=== PATIENT | female | born 1950 | race Caucasian/White ===

== ENCOUNTER 2016-08-10 05:02 | Inpatient (IN) | payer OTHER ==
[~2016-08-10] VITALS: Ht 154.9 cm; Wt 53.0 kg
[2016-08-10] VITALS (8 sets, daily range): BP systolic 119–134; BP diastolic 64–86; PULSE 83–108; RESP 16–21; TEMP 97.7–98.4; O2SAT 88–100
[~2016-08-10 05:02] MED LIST: AMLO5TAB2 PO; CYCL1TAB29 PO; DICL75TA PO; GABA300C5 PO; LISI-515 PO; OMEP40CA2 PO
[2016-08-10] MEDS ORDERED: SODIUM CHLOR 0.9% 1000 ML INJ 1,000 ML IV SCH (05:17)
--- NOTE | 2016-08-10 05:25 | PD ---
HPI . Abdominal pain Chief Complaint: Abdominal Pain Time Seen by Provider: 05:17 Travel History International Travel<30 days: No Contact w/Intl Traveler<30days: No Traveled to known affect area: No History of Present Illness HPI Patient presents with a three-day history of upper abdominal pain. She has also had some emesis. She estimates about 10 total episodes of emesis since onset 3 days ago. She denies diarrhea. She denies urinary tract symptoms. She denies fever. She denies any unusual cough or shortness of breath. She states that she always has a cough but it is nothing unusual. PFSH Past Medical History Arthritis: No Asthma: No Autoimmune Disease: No Anxiety: No Depression: No Heart Rhythm Problems: No Cancer: Yes (CERVICAL AND LUNG) High Cholesterol: No Chemotherapy: Yes Chest Pain: No Congestive Heart Failure: No COPD: No Cerebrovascular Accident: No Diabetes: No Diminished Hearing: No Endocrine: No GERD: Yes Genitourinary: No Hiatal Hernia: No Hypertension: Yes Immune Disorder: No Kidney Stones: No Medical other: Yes (neuropathy) Musculoskeletal: No Neurologic: No Psychiatric: No Reproductive: No Respiratory: Yes (lung cancer) Immunizations Current: Yes Migraines: No Radiation Therapy: Yes Renal Failure: No Seizures: No Sickle Cell Disease: No Sleep Apnea: No Thyroid Disease: No Ulcer: No Influenza Vaccination: No Menopausal: Yes : 2 Para: 2 Past Surgical History Abdominal Surgery: No AICD: No Arteriovenous Shunt: No Cardiac Surgery: No Cholecystectomy: Yes Ear Surgery: No Endocrine Surgery: No Eye Surgery: No Genitourinary Surgery: No Gynecologic Surgery: Yes (HYSTERECTOMY) Hysterectomy: Yes Insulin Pump: No Joint Replacement: No Oral Surgery: No Pacemaker: No Thoracic Surgery: No Other Surgery: Yes Social History Alcohol Use: Yes (occassional) Tobacco Use: No Substance Use: No Allergies-Medications (Allergen,Severity, Reaction): Coded Allergies: No Known Allergies (Verified , 08/10/16) Reported Meds & Prescriptions Reported Meds & Active Scripts Active Diclofenac Sodium DR (Diclofenac Sodium) 75 Mg Tabdr 75 Mg PO BID Gabapentin 300 Mg Cap 300 Mg PO TID Lisinopril 20 Mg Tab 20 Mg PO DAILY Omeprazole 40 Mg Cap 40 Mg PO DAILY Amlodipine (Amlodipine Besylate) 5 Mg Tab 5 Mg PO DAILY Review of Systems Except as stated in HPI: all other systems reviewed are Neg General / Constitutional: No: Fever, Chills Respiratory: Positive: Cough, No: Shortness of Breath Gastrointestinal: Positive: Nausea, Vomiting, Abdominal Pain, No: Diarrhea Genitourinary: No: Urgency, Frequency, Dysuria, Decreased Urinary Output Physical Exam Narrative GENERAL: Healthy-appearing woman in no acute distress SKIN: Warm and dry. HEAD: Atraumatic. Normocephalic. EYES: Pupils equal and round. Sclera are anicteric ENT: No nasal bleeding or discharge. Mucous membranes pink and moist. NECK: Trachea midline. Neck is supple CARDIOVASCULAR: Regular rate and rhythm. Heart sounds are normal RESPIRATORY: No accessory muscle use. Lungs are clear with full air movement throughout GASTROINTESTINAL: Abdomen soft. Diffuse upper abdominal tenderness. No point tenderness. Nondistended. MUSCULOSKELETAL: No obvious deformities. No edema. NEUROLOGICAL: Awake and alert. No obvious cranial nerve deficits. Motor grossly within normal limits. Normal speech. PSYCHIATRIC: Appropriate mood and affect; insight and judgment normal. Data Data Last Documented VS Vital Signs Date Time Temp Pulse Resp B/P Pulse Ox O2 Delivery O2 Flow Rate FiO2 08/10/16 05:13 102 124/86 98 08/10/16 05:05 97.7 16 Orders Complete Blood Count With Diff (08/10/16 05:17) Comprehensive Metabolic Panel (08/10/16 05:17) Lipase (08/10/16 05:17) Lactic Acid (08/10/16 05:17) Urinalysis - C+S If Indicated (08/10/16 05:17) Ct Abd/Pel W Iv Contrast(Rout) (08/10/16 05:17) Iv Access Insert/Monitor (08/10/16 05:17) Ecg Monitoring (08/10/16 05:17) Oximetry (08/10/16 05:17) Morphine Inj (Morphine Inj) (08/10/16 05:30) Ondansetron Inj (Zofran Inj) (08/10/16 05:30) Sodium Chlor 0.9% 1000 Ml Inj (Ns 1000 M (08/10/16 05:17) Sodium Chloride 0.9% Flush (Ns Flush) (08/10/16 05:30) Electrocardiogram (08/10/16 05:17) Iohexol 350 Inj (Omnipaque 350 Inj) (08/10/16 06:36) Place Ng Tube To Low Intermit (08/10/16 06:58) Morphine Inj (Morphine Inj) (08/10/16 07:00) Labs Laboratory Tests Test 08/10/16 05:20 White Blood Count 7.9 TH/MM3 Red Blood Count 4.40 MIL/MM3 Hemoglobin 13.4 GM/DL Hematocrit 39.6 % Mean Corpuscular Volume 90.1 FL Mean Corpuscular Hemoglobin 30.4 PG Mean Corpuscular Hemoglobin 33.8 % Concent Red Cell Distribution Width 13.9 % Platelet Count 227 TH/MM3 Mean Platelet Volume 8.2 FL Neutrophils (%) (Auto) 73.8 % Lymphocytes (%) (Auto) 17.4 % Monocytes (%) (Auto) 6.4 % Eosinophils (%) (Auto) 1.3 % Basophils (%) (Auto) 1.1 % Neutrophils # (Auto) 5.9 TH/MM3 Lymphocytes # (Auto) 1.4 TH/MM3 Monocytes # (Auto) 0.5 TH/MM3 Eosinophils # (Auto) 0.1 TH/MM3 Basophils # (Auto) 0.1 TH/MM3 CBC Comment DIFF FINAL Differential Comment Sodium Level 136 MEQ/L Potassium Level 3.5 MEQ/L Chloride Level 101 MEQ/L Carbon Dioxide Level 24.5 MEQ/L Anion Gap 11 MEQ/L Blood Urea Nitrogen 13 MG/DL Creatinine 0.72 MG/DL Estimat Glomerular Filtration 82 ML/MIN Rate Random Glucose 124 MG/DL Lactic Acid Level 0.8 mmol/L Calcium Level 8.9 MG/DL Total Bilirubin 0.5 MG/DL Aspartate Amino Transf 18 U/L (AST/SGOT) Alanine Aminotransferase 22 U/L (ALT/SGPT) Alkaline Phosphatase 96 U/L Total Protein 7.8 GM/DL Albumin 3.7 GM/DL Lipase 124 U/L [facility] Medical Decision Making Medical Screen Exam Complete: Yes Emergency Medical Condition: Yes Medical Record Reviewed: Yes (the patient had acute cholecystitis which was treated with an open cholecystectomy in hepaticojejunostomy. This was subsequently complicated by a small bowel obstruction.) Interpretation(s) EKG shows a normal sinus rhythm with a rate of 85. No ST segment elevation or depression. No change from previous. Differential Diagnosis Differential diagnosis of abdominal pain includes but is not limited to gastritis, pancreatitis, hepatitis, gastroenteritis, gallbladder disease, constipation, urinary retention, UTI, peptic ulcer disease, diverticulitis or appendicitis Narrative Course This is a patient who has a history of previous small bowel obstruction who presents with upper abdominal pain with associated nausea and vomiting. She will be evaluated for possible small bowel obstruction. CBC is normal. Chemistries are normal. Lactic acid level is normal. CT is suggestive of a small bowel obstruction. I will consult the hospitalist for admission. Diagnosis Primary Impression: Abdominal pain Qualified Code: R10.11 - Right upper quadrant abdominal pain Additional Impression: Small bowel obstruction Admitting Information Admitting Physician Requests: Admit Condition: Stable Paris Fletcher MD Aug 10, 2016 05:25
[2016-08-10] MEDS ORDERED: ONDANSETRON HCL 4 MG/2 ML VIAL IVP ONE (05:30)
[2016-08-10] MEDS ORDERED: MORPHINE SULFATE 4 MG/ML INJ IV PUSH ONE ×2 (05:30→07:00)
[2016-08-10] MEDS ORDERED: SODIUM CHLORIDE 0.9% FLUSH 5 ML FLUSH IVF PRN ×2 (05:30→21:45)
[2016-08-10 05:39] LABS: AUTOMATED NEUTROPHIL # 5.9 TH/MM3 (1.8-7.7); BASOPHIL # 0.1 TH/MM3 (0-0.2); BASOPHIL % 1.1 % (0.0-2.0); EOSINOPHIL # 0.1 TH/MM3 (0-0.4); EOSINOPHIL % 1.3 % (0.0-4.0); HEMATOCRIT 39.6 % (35.0-46.0); HEMO FLAGS DIFF FINAL; LYMPH % 17.4 % (9.0-44.0); LYMPHOCYTE # 1.4 TH/MM3 (1.0-4.8); MEAN CELL VOLUME 90.1 FL (80.0-100.0); MEAN CORPUSCULAR HEMOGLOBIN 30.4 PG (27.0-34.0); MEAN CORPUSCULAR HGB CONC 33.8 % (32.0-36.0); MONO % 6.4 % (0.0-8.0); NEUT % 73.8 % (16.0-70.0); PLATELET COUNT 227 TH/MM3 (150-450); RED CELL DISTRIBUTION WIDTH 13.9 % (11.6-17.2); WHITE BLOOD COUNT 7.9 TH/MM3 (4.0-11.0)
[2016-08-10 06:08] LABS: ALKALINE PHOSPHATASE 96 U/L (45-117); ALT (GPT) 22 U/L (10-53); ANION GAP 11 MEQ/L (5-15); AST (GOT) 18 U/L (15-37); BICARBONATE 24.5 MEQ/L (21.0-32.0); BLOOD UREA NITROGEN 13 MG/DL (7-18); CHLORIDE 101 MEQ/L (98-107); GLOMERULAR FILTRATION RATE 82 ML/MIN (>89); POTASSIUM 3.5 MEQ/L (3.5-5.1); SODIUM (NA) 136 MEQ/L (136-145); TOTAL BILIRUBIN ADULT 0.5 MG/DL (0.2-1.0)
[2016-08-10] MEDS ORDERED: IOHEXOL 350 MG/ML 10 ML VIAL (for RAD DIAG) IV ONE (06:36)
--- NOTE | 2016-08-10 06:52 | RADRPT ---
EXAM DATE/TIME: 08/10/2016 06:33 [facility] COMPARISON: CT ABDOMEN & PELVIS W/O CONTRAST, November 24, 2015, 3:35. INDICATIONS : Abdominal pain, nausea and vomiting since monday. IV CONTRAST: 66 cc Omnipaque 350 (iohexol) IV ORAL CONTRAST: No oral contrast ingested. RADIATION DOSE: 5.22 CTDIvol (mGy) MEDICAL HISTORY : Carcinoma, lung. cervical cancer SURGICAL HISTORY : Cholecystectomy. Hysterectomy. ENCOUNTER: Initial ACUITY: 2 days PAIN SCALE: 8/10 LOCATION: abdomen TECHNIQUE: Volumetric scanning of the abdomen and pelvis was performed. Using automated exposure control and adjustment of the mA and/or kV according to patient size, radiation dose was kept as low as reasonably achievable to obtain optimal diagnostic quality images. FINDINGS: LOWER LUNGS: There is mild left base atelectasis. LIVER: Pneumobilia is present. No evidence of mass or biliary ductal dilatation. Gallbladder surg ically absent. SPLEEN: Normal size without lesion. PANCREAS: Within normal limits. KIDNEYS: Normal in size and shape. There is no mass, stone or hydronephrosis. ADRENAL GLANDS: Within normal limits. VASCULAR: Dense atherosclerotic calcifications. No evidence of aneurysm. No major vessel occlusio n. BOWEL/MESENTERY: There is mild dilation of loops of bowel in the mid abdomen. There is mild indur ation of the adjacent mesentery. One of these is notable for what appears to be a staple anastomosis. Bowel loops elsewhere are normal in caliber during the colon is normal in caliber with diffuse diver ticulosis. There is no evidence of extraluminal gas or fluid. ABDOMINAL WALL: Within normal limits. RETROPERITONEUM: There is no lymphadenopathy. BLADDER: No wall thickening or mass. REPRODUCTIVE: Uterus is surgically absent. No evidence of pelvic mass. INGUINAL: There is no lymphadenopathy or hernia. MUSCULOSKELETAL: Within normal limits for patient age. CONCLUSION: Dilated loops of small bowel in the mid abdomen. Though it least somewhat concerning for early closed-loop obstruction, the appearance is similar to previous Vaibhav Blood MD on August 10, 2016 at 6:43 Board Certified Radiologist. This report was verified electronically.
[2016-08-10] MEDS: SODIUM CHLOR 0.9% 1000 ML INJ 1,000 ML IV SCH ×3 (08:55→23:48)
[2016-08-10 11:43] LABS: BACTERIA, URINE MANY /hpf; BLOOD, URINE MOD (NEG); GLUCOSE,URINE NEG (NEG); KETONE, URINE NEG (NEG); NITRITE,URINE NEG (NEG); PH, URINE 6.5 (5.0-8.5); SQUAMOUS EPITHELIAL CELL URINE 2 /hpf (0-5); URINE COLOR YELLOW (YELLW/STRAW)
[2016-08-10 11:49] LABS: COMMENT (UR) CULTURE INDICATED; CULTURE IF INDICATED CULTURE INDICATED
[2016-08-10] MEDS ORDERED: PROPOFOL 200 MG/20 ML AMP IV ONE (12:00)
[2016-08-10] MEDS ORDERED: ONDANSETRON HCL 4 MG/2 ML VIAL IV PUSH ONE (12:00)
[2016-08-10] MEDS ORDERED: PHENYLEPH/NS 1000 MCG/10 ML SYR IV ONE (12:00)
[2016-08-10] MEDS ORDERED: NEOSTIGMINE 3 MG/3 ML SYR IV ONE (12:00)
[2016-08-10] MEDS: HYDROmorphone HCL PF 1 MG/ML VIAL IV PUSH PRN ×2 (12:29→16:42)
--- NOTE | 2016-08-10 16:51 | HHI.HP ---
HPI Service [facility] Hospitalists Primary Care Physician Magui Cartwright MD Admission Diagnosis SBO Chief Complaint: Nausea/vomiting Travel History International Travel<30 Days: No Contact w/Intl Traveler <30 Da: No Traveled to Known Affected Are: No History of Present Illness Mrs. De Santiago is a pleasant 66 y/o female with hx of SBO after abdominal surgery for acute cholecystitis in 11/2015, stage IIIb Small cell lung cancer in remission, treated with chemo and radiation in 2005 and HTN. Pt presented to the ED on 08/10/16 with complaints of a 3 day history of abd pain, nausea and vomiting. She states that her last BM was yesterday evening and was normal. Every time she tried to eat and drink she was having increased upper abd pain, nausea and vomiting. She denies urinary symptoms, fevers/chills, melena, BRBPR, SOB or increased cough. She reports a chronic cough since her lung cancer but there is no recent change in this cough. Pt is quite anxious at the time of the exam. She had a CT abd/pelvis at admission which revealed dilated loops of small bowel in the mid abdomen, somewhat concerning for early closed-loop obstruction, the appearance is similar to previous. Pt had an NGT placed in the ER but not much outpt per nursing staff. Pt has been evaluated by General Surgery and is planned to go to the OR tonight. Review of Systems Constitutional: DENIES: Fever, Chills Eyes: DENIES: Vision loss Ears, nose, mouth, throat: DENIES: Hearing loss Respiratory: COMPLAINS OF: Cough (chronic), DENIES: Shortness of breath Cardiovascular: DENIES: Chest pain, Palpitations Gastrointestinal: COMPLAINS OF: Abdominal pain, Nausea, Vomiting, DENIES: Constipation, Diarrhea Genitourinary: DENIES: Urinary incontinence, Urgency Musculoskeletal: DENIES: Back pain Integumentary: DENIES: Rash Neurologic: DENIES: Headache Psychiatric: COMPLAINS OF: Anxiety, DENIES: Confusion Past Family Social History Past Medical History Hx of SBO after abdominal surgery for acute cholecystitis in 11/2015 Stage IIIb Small cell lung cancer in remission, treated with chemo and radiation , 2005; Oncologist [place] (Dr. Connell at [facility]) HTN Chronic neck pain Hx of cervical cancer Past Surgical History Laparoscopic cholecystectomy converted to open cholecystectomy with CBD resection and hepaticojejunostomy in 11/2015 Hysterectomy for cervical cancer (1980) Cervical lymph node exploration Reported Medications Gabapentin 300 Mg PO TID Lisinopril 20 Mg PO DAILY Omeprazole 40 Mg PO DAILY Amlodipine 5 Mg PO DAILY Allergies: Coded Allergies: No Known Allergies (Verified , 08/10/16) Family History Mother: alive in 80s, with hx of CAD Father: at 71, CHF, CVA Sister: alive, CAD Brother: alive, COPD Social History Lives alone Works at a bar Tobacco: quit smoking 2006, 2 PPD x 40 years EtOH: social Illicit drugs: denies Physical Exam Vital Signs Vital Signs Date Time Temp Pulse Resp B/P Pulse Ox O2 Delivery O2 Flow Rate FiO2 08/10/16 12:00 98.2 87 19 121/72 97 08/10/16 11:16 96 Nasal Cannula 08/10/16 07:31 88 Room Air 08/10/16 07:31 95 Nasal Cannula 2 08/10/16 07:17 83 21 124/86 98 Room Air 08/10/16 05:13 102 124/86 98 08/10/16 05:05 97.7 108 16 119/64 100 Physical Exam GENERAL: This is a well-nourished, well-developed patient, in no apparent distress. HEENT: Atraumatic. Normocephalic. No temporal or scalp tenderness. No scleral icterus. Airway patent. NECK: Trachea midline, supple, nontender. CARDIO: Regular. RESP: CTA bilaterally. No wheezes, rales, or rhonchi. ABD: Decreased bowel sounds, mildly distended, upper abd tenderness. EXT: Extremities without clubbing, cyanosis, or edema. NEURO: Awake and alert. Motor and sensory grossly within normal limits. Normal speech. Laboratory Laboratory Tests Test 08/10/16 08/10/16 05:20 11:15 White Blood Count 7.9 Red Blood Count 4.40 Hemoglobin 13.4 Hematocrit 39.6 Mean Corpuscular Volume 90.1 Mean Corpuscular Hemoglobin 30.4 Mean Corpuscular Hemoglobin 33.8 Concent Red Cell Distribution Width 13.9 Platelet Count 227 Mean Platelet Volume 8.2 Neutrophils (%) (Auto) 73.8 Lymphocytes (%) (Auto) 17.4 Monocytes (%) (Auto) 6.4 Eosinophils (%) (Auto) 1.3 Basophils (%) (Auto) 1.1 Neutrophils # (Auto) 5.9 Lymphocytes # (Auto) 1.4 Monocytes # (Auto) 0.5 Eosinophils # (Auto) 0.1 Basophils # (Auto) 0.1 CBC Comment DIFF FINAL Differential Comment Sodium Level 136 Potassium Level 3.5 Chloride Level 101 Carbon Dioxide Level 24.5 Anion Gap 11 Blood Urea Nitrogen 13 Creatinine 0.72 Estimat Glomerular Filtration 82 Rate Random Glucose 124 Lactic Acid Level 0.8 Calcium Level 8.9 Total Bilirubin 0.5 Aspartate Amino Transf 18 (AST/SGOT) Alanine Aminotransferase 22 (ALT/SGPT) Alkaline Phosphatase 96 Total Protein 7.8 Albumin 3.7 Lipase 124 Urine Color YELLOW Urine Turbidity HAZY Urine pH 6.5 Urine Specific [place] 1.050 Urine Protein TRACE Urine Glucose (UA) NEG Urine Ketones NEG Urine Occult Blood MOD Urine Nitrite NEG Urine Bilirubin NEG Urine Urobilinogen LESS THAN 2.0 Urine Leukocyte Esterase NEG Urine RBC 1 Urine WBC 2 Urine Squamous Epithelial 2 Cells Urine Bacteria MANY Microscopic Urinalysis Comment CULTURE INDICATED Date/Time Procedure Status Source Growth 08/10/16 11:15 Urine Culture Received Urine Clean Catch Pending Result Diagram: 08/10/16 0520 08/10/16 0520 Imaging Last Impressions Abdomen/Pelvis CT 08/10/1617 Signed Impressions: Service Date/Time: Wednesday, August 10, 2016 06:33 - CONCLUSION: Dilated loops of small bowel in the mid abdomen. Though it least somewhat concerning for early closed-loop obstruction, the appearance is similar to previous Vaibhav Blood MD Septic Shock Reassessment Heart: Regular rate and rhythm Lungs: Clear Skin: Warm Peripheral Pulses: Bounding Right Radial Bounding Left Radial Bounding Right Popliteal Bounding Left Popliteal Bounding Right Dorsalis Pedis Bounding Left Dorsalis Pedis Bounding Right Posterior Tibial Bounding Left Posterior Tibial Assessment and Plan Problem List: (1) Small bowel obstruction Status: Acute Plan: - Pt admitted with a three day history of abdominal pain, nausea/vomiting - Pt with a hx of SBO after previous laparoscopic cholecystectomy converted to open cholecystectomy with CBD resection and hepaticojejunostomy in 11/2015 - CT Abd/pelvis (08/10) --> Dilated loops of small bowel in the mid abdomen. Though it least somewhat concerning for early closed-loop obstruction, the appearance is similar to previous - NGT has been placed to LIWS - General Surgery is consulted and pt is planned to go to the OR this evening. - PRN BP medications - Zofran PRN - Tylenol PRN - Ativan PRN anxiety - DVT prophylaxis. (2) Abdominal pain Status: Acute Plan: - See above. (3) HTN (hypertension) Status: Chronic Plan: - BP stable currently - Hold home meds as pt is NPO - Vasotec PRN - Monitor (4) History of lung cancer Status: Chronic Plan: - Pt with hx of stage IIIb small cell lung cancer in remission, treated with chemo and radiation, 2005 - Pts Oncologist in [place] (Dr. Connell at [facility]) (5) History of cervical cancer Status: Chronic Physician Certification 2 Midnight Certification Type: Admission for Inpatient Services Order for Inpatient Services The services are ordered in accordance with Medicare regulations or non- Medicare payer requirements, as applicable. In the case of services not specified as inpatient-only, they are appropriately provided as inpatient services in accordance with the 2-midnight benchmark. Estimated LOS (days): 3 3 days is the estimated time the patient will need to remain in the hospital, assuming treatment plan goals are met and no additional complications. Post-Hospital Plan: Not yet determined Problem Qualifiers (1) Abdominal pain: Qualified Code: R10.11 - Right upper quadrant abdominal pain Kayli Lunsford Aug 10, 2016 16:51 Lokesh Michel DO Aug 19, 2016 18:17
[2016-08-10] MEDS ORDERED: NS + KCL 20 MEQ INJ 1,000 ML IV SCH (17:00)
[2016-08-10] MEDS ORDERED: ENALAPRILAT 1.25 MG/ML VIAL IV PUSH PRN (17:15)
[2016-08-10] MEDS ORDERED: ONDANSETRON HCL 4 MG/2 ML VIAL IV PRN ×2 (17:15→21:45)
[2016-08-10] MEDS ORDERED: ACETAMINOPHEN 325 MG TAB PO PRN (17:15)
[2016-08-10] MEDS: ceFAZolin 2 GM PREMIX 50 ML IV SCH ×2 (17:46→20:20)
[2016-08-10] MEDS: METRONIDAZOLE 500 MG/100 ML ISONTONIC SOLN IV SCH ×2 (17:46→20:22)
[2016-08-10] MEDS: LORazepam 2 MG/ML VIAL IV PUSH PRN (17:47)
[2016-08-10] MEDS ORDERED: BUPIVACAINE/EPINEPHRINE 0.25% PF 30 ML VIAL ONE (19:29)
[2016-08-10] MEDS ORDERED: RESP: ALBUTEROL CONC 2.5 MG/0.5 ML NEB ONE (19:40)
--- NOTE | 2016-08-10 19:46 | EKG ---
Date Performed: 08/10/2016 Time Performed: 05:29:10 PTAGE: 66 years EKG: Sinus rhythm NORMAL ECG PREVIOUS TRACING : 11/17/2015 10.57 Compared to prior tracing no significant change DOCTOR: Andrea Benitez Interpretating Date/Time 08/10/2016 19:45:20
[2016-08-10] MEDS ORDERED: fentaNYL CITRATE 250 MCG/5 ML AMP ONE (21:11)
[2016-08-10] MEDS ORDERED: Post-op Orders (for Pharmacy) MISC XX ONE (21:45)
[2016-08-10] MEDS ORDERED: ACETAMINOPHEN/HYDROcodone 325 MG/5 MG TAB PO PRN (21:45)
[2016-08-10] MEDS ORDERED: MORPHINE SULFATE 8 MG/ML INJ IV PUSH PRN (21:45)
[2016-08-10] MEDS ORDERED: MORPHINE SULFATE 4 MG/ML INJ ONE (22:43)
[2016-08-11] MEDS: LORazepam 2 MG/ML VIAL IV PUSH PRN ×3 (00:11→22:08)
[2016-08-11 00:42] VITALS: BP 105/59; PULSE 81; RESP 16; TEMP 98.7; O2SAT 94
[2016-08-11] MEDS: metroNIDAZOLE 500 MG INJ 100 ML IV SCH ×3 (02:57→17:20)
[2016-08-11 05:04] LABS: AUTOMATED NEUTROPHIL # 5.6 TH/MM3 (1.8-7.7); BASOPHIL % 0.2 % (0.0-2.0); EOSINOPHIL % 0.2 % (0.0-4.0); HEMATOCRIT 35.5 % (35.0-46.0); HEMO FLAGS DIFF FINAL; LYMPH % 8.8 % (9.0-44.0); LYMPHOCYTE # 0.6 TH/MM3 (1.0-4.8); MEAN CELL VOLUME 91.4 FL (80.0-100.0); MEAN CORPUSCULAR HEMOGLOBIN 30.7 PG (27.0-34.0); MEAN CORPUSCULAR HGB CONC 33.6 % (32.0-36.0); MONO % 5.7 % (0.0-8.0); NEUT % 85.1 % (16.0-70.0); PLATELET COUNT 146 TH/MM3 (150-450); RED BLOOD COUNT 3.88 MIL/MM3 (4.00-5.30); RED CELL DISTRIBUTION WIDTH 13.7 % (11.6-17.2); WHITE BLOOD COUNT 6.6 TH/MM3 (4.0-11.0)
[2016-08-11 05:13] LABS: BICARBONATE 26.3 MEQ/L (21.0-32.0); MAGNESIUM 1.4 MG/DL (1.5-2.5); POTASSIUM 3.4 MEQ/L (3.5-5.1)
[2016-08-11] MEDS: SODIUM CHLOR 0.9% 1000 ML INJ 1,000 ML IV SCH ×2 (05:46→17:20)
[2016-08-11] MEDS ORDERED: MAGNESIUM SULFATE 4 GM PREMIX 100 ML IV ONE (07:45)
[2016-08-11 07:59] VITALS: BP 135/68; PULSE 84; RESP 17; TEMP 98.3; O2SAT 95
[2016-08-11] MEDS ORDERED: MAGNESIUM SULFATE 4 GM/NS 100 ML IV ONE ×2 (08:00)
[2016-08-11] MEDS ORDERED: POTASSIUM CHLOR 20 MEQ PREMIX 100 ML IV ONE (08:00)
[2016-08-11] MEDS: MAGNESIUM SULFAT 1 GM PREMIX 100 ML x2 bags IV SCH ×4 (08:34→11:58)
[2016-08-11] MEDS: SODIUM CHLORIDE 0.9% FLUSH 5 ML FLUSH IVF SCH ×2 (08:35→19:55)
--- NOTE | 2016-08-11 10:17 | RADRPT ---
EXAM DATE/TIME: 08/11/2016 09:58 [facility] COMPARISON: SMALL BOWEL SERIES W/GASTROGRAFIN, November 25, 2015, 11:11. CT ABDOMEN & PELVIS W CONTRAST, August 10, 2016, 6:33. ABDOMEN KUB ONLY, November 17, 2015, 17:59. INDICATIONS : Abdominal pain. Abnormal CT demonstrating dilated loops of small bowel. Evaluate for possible obstruc tion. MEDICAL HISTORY : Partial bowel resection. Lung carcinoma. Cervical cancer. SURGICAL HISTORY : Cholecystectomy. Hysterectomy. ENCOUNTER: Initial ACUITY: 1 day PAIN SCORE: 8/10 LOCATION: Bilateral abdomen FINDINGS: A single AP supine view of the abdomen was obtained and demonstrates gas and stool noted segmentally in the colon. There are surgical clips in the right lower quadrant. There are several loops of mildly prominent air-containing small bowel noted in the mid abdomen. These measure up to 4.4 cm in greates t diameter. There is no free air or mass effect. There are small calcified phleboliths again noted in the pelvis. The bony structures remain intact. CONCLUSION: Nonspecific bowel gas pattern again noted. This is not significantly changed from the small bowel se filomena. Jersey Clement MD on August 11, 2016 at 10:11 Board Certified Radiologist. This report was verified electronically.
[2016-08-11] MEDS: HYDROmorphone HCL PF 1 MG/ML VIAL IV PUSH PRN ×3 (11:01→19:55)
[2016-08-11 12:00] VITALS: BP 140/69; PULSE 85; RESP 19; TEMP 97.7; O2SAT 96
--- NOTE | 2016-08-11 14:39 | HHI.PR ---
Subjective Remarks Pt reports that her abd pain is improved She is passing gas Tolerating clear liquid diet. Afebrile. Objective Vitals Vital Signs Date Time Temp Pulse Resp B/P Pulse Ox O2 Delivery O2 Flow Rate FiO2 08/11/16 12:00 97.7 85 19 140/69 96 08/11/16 07:59 98.3 84 17 135/68 95 08/11/16 00:42 98.7 81 16 105/59 94 08/10/16 23:30 98.1 77 14 119/75 96 Nasal Cannula 3 08/10/16 22:30 98.1 82 14 128/71 97 Nasal Cannula 3 08/10/16 22:15 89 14 143/80 97 Nasal Cannula 3 08/10/16 22:00 89 15 147/80 98 Nasal Cannula 3 08/10/16 22:00 98.4 93 19 124/75 96 08/10/16 21:50 98.2 76 17 157/86 98 Nasal Cannula 3 08/10/16 19:45 98.2 86 17 154/88 99 08/10/16 19:45 99 Aerosol Mask 8 08/10/16 16:00 97.9 87 17 134/77 95 08/10/16 08/10/16 08/11/16 15:00 23:00 07:00 Intake Total 0 ml 2300 ml 1000 ml Output Total 300 ml 400 ml 1300 ml Balance -300 ml 1900 ml -300 ml Intake Oral 0 ml 0 ml IV Total 500 ml 800 ml Other 1800 ml 200 ml Output Urine Total 300 ml 400 ml 1300 ml # Bowel Movements 0 0 Result Diagram: 08/11/16 0402 08/11/16 0402 Other Results Laboratory Tests Test 08/10/16 08/10/16 08/11/16 05:20 11:15 04:02 Sodium Level 136 MEQ/L 142 MEQ/L Potassium Level 3.5 MEQ/L 3.4 MEQ/L Chloride Level 101 MEQ/L 107 MEQ/L Carbon Dioxide Level 24.5 MEQ/L 26.3 MEQ/L Anion Gap 11 MEQ/L 9 MEQ/L Blood Urea Nitrogen 13 MG/DL 5 MG/DL Creatinine 0.72 MG/DL 0.51 MG/DL Estimat Glomerular Filtration 82 ML/MIN 121 ML/MIN Rate Random Glucose 124 MG/DL 96 MG/DL Lactic Acid Level 0.8 mmol/L Calcium Level 8.9 MG/DL 8.0 MG/DL Total Bilirubin 0.5 MG/DL Aspartate Amino Transf 18 U/L (AST/SGOT) Alanine Aminotransferase 22 U/L (ALT/SGPT) Alkaline Phosphatase 96 U/L Total Protein 7.8 GM/DL Albumin 3.7 GM/DL Lipase 124 U/L White Blood Count 7.9 TH/MM3 6.6 TH/MM3 Red Blood Count 4.40 MIL/MM3 3.88 MIL/MM3 Hemoglobin 13.4 GM/DL 11.9 GM/DL Hematocrit 39.6 % 35.5 % Mean Corpuscular Volume 90.1 FL 91.4 FL Mean Corpuscular Hemoglobin 30.4 PG 30.7 PG Mean Corpuscular Hemoglobin 33.8 % 33.6 % Concent Red Cell Distribution Width 13.9 % 13.7 % Platelet Count 227 TH/MM3 146 TH/MM3 Mean Platelet Volume 8.2 FL 8.5 FL Neutrophils (%) (Auto) 73.8 % 85.1 % Lymphocytes (%) (Auto) 17.4 % 8.8 % Monocytes (%) (Auto) 6.4 % 5.7 % Eosinophils (%) (Auto) 1.3 % 0.2 % Basophils (%) (Auto) 1.1 % 0.2 % Neutrophils # (Auto) 5.9 TH/MM3 5.6 TH/MM3 Lymphocytes # (Auto) 1.4 TH/MM3 0.6 TH/MM3 Monocytes # (Auto) 0.5 TH/MM3 0.4 TH/MM3 Eosinophils # (Auto) 0.1 TH/MM3 0.0 TH/MM3 Basophils # (Auto) 0.1 TH/MM3 0.0 TH/MM3 CBC Comment DIFF FINAL DIFF FINAL Differential Comment Urine Color YELLOW Urine Turbidity HAZY Urine pH 6.5 Urine Specific [place] 1.050 Urine Protein TRACE mg/dL Urine Glucose (UA) NEG mg/dL Urine Ketones NEG mg/dL Urine Occult Blood MOD Urine Nitrite NEG Urine Bilirubin NEG Urine Urobilinogen LESS THAN 2.0 MG/DL Urine Leukocyte Esterase NEG Urine RBC 1 /hpf Urine WBC 2 /hpf Urine Squamous Epithelial 2 /hpf Cells Urine Bacteria MANY /hpf Microscopic Urinalysis Comment CULTURE INDICATED Magnesium Level 1.4 MG/DL Imaging Last Impressions Abdomen/Pelvis CT 08/10/16 0517 Signed Impressions: Service Date/Time: Wednesday, August 10, 2016 06:33 - CONCLUSION: Dilated loops of small bowel in the mid abdomen. Though it least somewhat concerning for early closed-loop obstruction, the appearance is similar to previous Vaibhav Blood MD Objective Remarks General: NAD, AAOx3 Chest: CTA bilaterally Cardiac: Regular Abd: +BS, soft ND mild diffuse tenderness Ext: No edema A/P Problem List: (1) Small bowel obstruction Status: Acute Plan: - Pt admitted with a three day history of abdominal pain, nausea/vomiting - Pt with a hx of SBO after previous laparoscopic cholecystectomy converted to open cholecystectomy with CBD resection and hepaticojejunostomy in 11/2015 - CT Abd/pelvis (08/10) --> Dilated loops of small bowel in the mid abdomen. Though it least somewhat concerning for early closed-loop obstruction, the appearance is similar to previous - General Surgery was consulted - Pt underwent diagnostic laparoscopy with MAYNOR on 08/10/[address] Vicente. - Pt doing well postoperatively. - Tolerating clear liquids. - Encourage OOB - PRN BP medications - Zofran PRN - Tylenol PRN - Ativan PRN anxiety - DVT prophylaxis. (2) Abdominal pain Status: Acute Plan: - See above. (3) HTN (hypertension) Status: Chronic Plan: - BP stable currently - Vasotec PRN - Monitor (4) History of lung cancer Status: Chronic Plan: - Pt with hx of stage IIIb small cell lung cancer in remission, treated with chemo and radiation, 2005 - Pts Oncologist [place] (Dr. Connell at [facility]) (5) History of cervical cancer Status: Chronic Assessment and Plan Patient examined. Assessment and plan formulated with Kayli Lunsford PA-C. I agree with the above. Problem Qualifiers (1) Abdominal pain: Qualified Code: R10.11 - Right upper quadrant abdominal pain Kayli Lunsford Aug 11, 2016 14:39 Lokesh Michel DO Aug 19, 2016 18:16
[2016-08-11] MEDS ORDERED: MAGNESIUM SULFATE 1 GM PREMIX 100 ML IV SCH (15:00)
[2016-08-11 15:58] VITALS: BP 94/64; PULSE 86; RESP 19; TEMP 98.3; O2SAT 96
--- NOTE | 2016-08-11 17:11 | HHI.PR ---
Subjective Subjective Notes pt comfortable pain better no N/V Objective Vitals/I&O Vital Signs Date Time Temp Pulse Resp B/P Pulse Ox O2 Delivery O2 Flow Rate FiO2 08/11/16 15:58 98.3 86 19 94/64 96 08/10/16 23:30 Nasal Cannula 3 Labs Laboratory Tests Test 08/11/16 04:02 White Blood Count 6.6 Red Blood Count 3.88 Hemoglobin 11.9 Hematocrit 35.5 Mean Corpuscular Volume 91.4 Mean Corpuscular Hemoglobin 30.7 Mean Corpuscular Hemoglobin 33.6 Concent Red Cell Distribution Width 13.7 Platelet Count 146 Mean Platelet Volume 8.5 Neutrophils (%) (Auto) 85.1 Lymphocytes (%) (Auto) 8.8 Monocytes (%) (Auto) 5.7 Eosinophils (%) (Auto) 0.2 Basophils (%) (Auto) 0.2 Neutrophils # (Auto) 5.6 Lymphocytes # (Auto) 0.6 Monocytes # (Auto) 0.4 Eosinophils # (Auto) 0.0 Basophils # (Auto) 0.0 CBC Comment DIFF FINAL Differential Comment Sodium Level 142 Potassium Level 3.4 Chloride Level 107 Carbon Dioxide Level 26.3 Anion Gap 9 Blood Urea Nitrogen 5 Creatinine 0.51 Estimat Glomerular Filtration 121 Rate Random Glucose 96 Calcium Level 8.0 Magnesium Level 1.4 Date/Time Procedure Status Source Growth 08/10/16 11:15 Urine Culture - Preliminary Resulted Urine Clean Catch Gram Negative Ravi Abdomen: Post-op tenderness Extremities: Perfused Wound Wound : Wound Location: Abdomen Appearance: Clean & Dry A/P Assessment and Plan s/p Lap MAYNOR normal post op changes clear liquids oob ambulate Ac Kan MD Aug 11, 2016 17:11
[2016-08-11 20:00] VITALS: BP 124/66; PULSE 90; RESP 17; TEMP 99.9; O2SAT 97
[2016-08-11] MEDS: ENOXAPARIN SODIUM 30 MG/0.3 ML SYRINGE SQ SCH (21:02)
[2016-08-12] VITALS: BP 109/61; PULSE 84; RESP 17; TEMP 98.7; O2SAT 96
[2016-08-12] MEDS: HYDROmorphone HCL PF 1 MG/ML VIAL IV PUSH PRN ×2 (00:13→05:40)
[2016-08-12] MEDS: SODIUM CHLOR 0.9% 1000 ML INJ 1,000 ML IV SCH ×2 (04:32→22:55)
[2016-08-12 05:49] LABS: AUTOMATED NEUTROPHIL # 3.7 TH/MM3 (1.8-7.7); BASOPHIL % 0.7 % (0.0-2.0); BICARBONATE 26.9 MEQ/L (21.0-32.0); EOSINOPHIL # 0.1 TH/MM3 (0-0.4); EOSINOPHIL % 2.6 % (0.0-4.0); HEMATOCRIT 34.1 % (35.0-46.0); HEMO FLAGS DIFF FINAL; LYMPHOCYTE # 0.9 TH/MM3 (1.0-4.8); MAGNESIUM 1.8 MG/DL (1.5-2.5); MEAN CELL VOLUME 91.3 FL (80.0-100.0); MEAN CORPUSCULAR HGB CONC 33.9 % (32.0-36.0); MONO % 8.7 % (0.0-8.0); PLATELET COUNT 157 TH/MM3 (150-450); POTASSIUM 3.1 MEQ/L (3.5-5.1); RED BLOOD COUNT 3.73 MIL/MM3 (4.00-5.30); RED CELL DISTRIBUTION WIDTH 13.4 % (11.6-17.2); WHITE BLOOD COUNT 5.2 TH/MM3 (4.0-11.0)
[2016-08-12 08:00] VITALS: BP 128/75; PULSE 78; RESP 17; TEMP 98.2; O2SAT 95
--- NOTE | 2016-08-12 08:05 | HHI.PR ---
Subjective Subjective Notes c/o abd pain states its a different pain from presentation pos flatus Objective Vitals/I&O Vital Signs Date Time Temp Pulse Resp B/P Pulse Ox O2 Delivery O2 Flow Rate FiO2 08/12/16 00:00 98.7 84 17 109/61 96 08/10/16 23:30 Nasal Cannula 3 Labs Laboratory Tests Test 08/12/16 04:33 White Blood Count 5.2 Red Blood Count 3.73 Hemoglobin 11.6 Hematocrit 34.1 Mean Corpuscular Volume 91.3 Mean Corpuscular Hemoglobin 31.0 Mean Corpuscular Hemoglobin 33.9 Concent Red Cell Distribution Width 13.4 Platelet Count 157 Mean Platelet Volume 8.7 Neutrophils (%) (Auto) 71.0 Lymphocytes (%) (Auto) 17.0 Monocytes (%) (Auto) 8.7 Eosinophils (%) (Auto) 2.6 Basophils (%) (Auto) 0.7 Neutrophils # (Auto) 3.7 Lymphocytes # (Auto) 0.9 Monocytes # (Auto) 0.4 Eosinophils # (Auto) 0.1 Basophils # (Auto) 0.0 CBC Comment DIFF FINAL Differential Comment Sodium Level 139 Potassium Level 3.1 Chloride Level 103 Carbon Dioxide Level 26.9 Anion Gap 9 Blood Urea Nitrogen 4 Creatinine 0.41 Estimat Glomerular Filtration 156 Rate Random Glucose 87 Calcium Level 7.9 Magnesium Level 1.8 Date/Time Procedure Status Source Growth 08/10/16 11:15 Urine Culture - Preliminary Resulted Urine Clean Catch Gram Negative Ravi Abdomen: Non-distended, Post-op tenderness Extremities: Perfused Wound Wound : Wound Location: Abdomen Appearance: Clean & Dry A/P Assessment and Plan s/p Lap MAYNOR normal post op changes regular diet oob ambulate Ac Kan MD Aug 12, 2016 08:05
[2016-08-12] MEDS: SODIUM CHLORIDE 0.9% FLUSH 5 ML FLUSH IVF SCH ×2 (09:00→20:47)
[2016-08-12] MEDS: ACETAMINOPHEN/HYDROcodone 325 MG/5 MG TAB PO PRN ×4 (09:29→22:51)
[2016-08-12 11:42] VITALS: BP 128/86; PULSE 78; RESP 20; TEMP 98.2; O2SAT 95
[2016-08-12 15:57] VITALS: BP 110/51; PULSE 81; RESP 17; TEMP 98.3; O2SAT 95
--- NOTE | 2016-08-12 15:57 | HHI.PR ---
Subjective Remarks Abdominal pain is improved Pt is tolerating PO intake. No n/v + flatus Objective Vitals Vital Signs Date Time Temp Pulse Resp B/P Pulse Ox O2 Delivery O2 Flow Rate FiO2 08/12/16 11:42 98.2 78 20 128/86 95 08/12/16 08:00 98.2 78 17 128/75 95 08/12/16 00:00 98.7 84 17 109/61 96 08/11/16 20:00 99.9 90 17 124/66 97 08/11/16 15:58 98.3 86 19 94/64 96 08/11/16 08/11/16 08/12/16 15:00 23:00 07:00 Intake Total 840 ml 1560 ml 1048 ml Output Total 1400 ml 700 ml 800 ml Balance -560 ml 860 ml 248 ml Intake Oral 840 ml 240 ml 240 ml IV Total 1320 ml 808 ml Output Urine Total 1400 ml 700 ml 800 ml # Bowel Movements 0 Result Diagram: 08/12/16 0433 08/12/16 0433 Imaging Last Impressions Abdomen/Pelvis CT 08/10/16 0517 Signed Impressions: Service Date/Time: Wednesday, August 10, 2016 06:33 - CONCLUSION: Dilated loops of small bowel in the mid abdomen. Though it least somewhat concerning for early closed-loop obstruction, the appearance is similar to previous Vaibhav Blood MD Objective Remarks General: NAD, AAOx3 Chest: CTA bilaterally Cardiac: Regular Abd: +BS, soft ND mild diffuse tenderness Ext: No edema A/P Problem List: (1) Small bowel obstruction Status: Acute Plan: - Pt admitted with a three day history of abdominal pain, nausea/vomiting - Pt with a hx of SBO after previous laparoscopic cholecystectomy converted to open cholecystectomy with CBD resection and hepaticojejunostomy in 11/2015 - CT Abd/pelvis (08/10) --> Dilated loops of small bowel in the mid abdomen. Though it least somewhat concerning for early closed-loop obstruction, the appearance is similar to previous - General Surgery was consulted - Pt underwent diagnostic laparoscopy with MAYNOR on 08/10/[address] Vicente. - diet advanced to regular by general surgery - anticipate discharge to home 08/13/16 - Encourage OOB - PRN BP medications - Zofran PRN - Tylenol PRN - Ativan PRN anxiety - DVT prophylaxis. (2) Abdominal pain Status: Acute Plan: - See above. (3) HTN (hypertension) Status: Chronic Plan: - BP stable currently - Vasotec PRN - Monitor (4) History of lung cancer Status: Chronic Plan: - Pt with hx of stage IIIb small cell lung cancer in remission, treated with chemo and radiation, 2005 - Pts Oncologist in [place] (Dr. Connell at [place]) (5) History of cervical cancer Status: Chronic Problem Qualifiers (1) Abdominal pain: Qualified Code: R10.11 - Right upper quadrant abdominal pain Lokesh Michel DO Aug 12, 2016 15:57
[2016-08-12 20:00] VITALS: BP 122/76; PULSE 75; RESP 20; TEMP 98.3; O2SAT 94
[2016-08-12] MEDS: ENOXAPARIN SODIUM 30 MG/0.3 ML SYRINGE SQ SCH (20:47)
[2016-08-13] VITALS: BP 122/71; PULSE 76; RESP 20; TEMP 98.3; O2SAT 95
[2016-08-13] MEDS: ACETAMINOPHEN/HYDROcodone 325 MG/5 MG TAB PO PRN ×4 (03:02→17:24)
[2016-08-13 08:00] VITALS: BP 138/68; PULSE 70; RESP 16; TEMP 97.7; O2SAT 94
[2016-08-13] MEDS: SODIUM CHLORIDE 0.9% FLUSH 5 ML FLUSH IVF SCH (09:00)
[2016-08-13] MEDS: SODIUM CHLOR 0.9% 1000 ML INJ 1,000 ML IV SCH (09:04)
[2016-08-13 12:00] VITALS: BP 146/70; PULSE 66; RESP 17; TEMP 95.4; O2SAT 95
--- NOTE | 2016-08-13 14:41 | HHI.PR ---
Subjective Subjective Notes + flatus; no BM yet. Ambulating well; tolerating diet without problem. No nausea /emesis. Has less pain which is well controlled. Objective Vitals/I&O Vital Signs Date Time Temp Pulse Resp B/P Pulse Ox O2 Delivery O2 Flow Rate FiO2 08/13/16 12:00 95.4 66 17 146/70 95 08/10/16 23:30 Nasal Cannula 3 Labs Date/Time Procedure Status Source Growth 08/10/16 11:15 Urine Culture - Final Complete Urine Clean Catch Klebsiella Pneumoniae Cardiovascular: Regular Lungs: Clear Abdomen: Non-distended, Post-op tenderness, BS normal Extremities: No edema A/P Assessment and Plan Doing well s/p laparoscopic lysis of adhesions. OK for d/c to home when ok with medicine. Needs to see Dr. Kan in 10-14 days. Jayson Camp MD Aug 13, 2016 14:41
[2016-08-13 16:00] VITALS: BP 128/67; PULSE 65; RESP 17; TEMP 97.6; O2SAT 97
[2016-08-13] MEDS ORDERED: HYDR-3516 PO (17:05)
--- NOTE | 2016-08-13 17:09 | HHI.DS ---
Discharge Summary Admission Date Aug 10, 2016 at 07:27 Admitting Diagnosis SBO (1) Small bowel obstruction Diagnosis: Principal (2) Abdominal pain Diagnosis: Principal (3) HTN (hypertension) Diagnosis: Secondary (4) History of lung cancer Diagnosis: Secondary (5) History of cervical cancer Diagnosis: Secondary Consultants Dr. Ac Kearney, General Surgery Procedures Pt underwent diagnostic laparoscopy with MAYNOR on 08/10/[address] Vicente. Brief History Mrs. De Santiago is a pleasant 66 y/o female with hx of SBO after abdominal surgery for acute cholecystitis in 11/2015, stage IIIb Small cell lung cancer in remission, treated with chemo and radiation in 2005 and HTN. Pt presented to the ED on 08/10/16 with complaints of a 3 day history of abd pain, nausea and vomiting. She states that her last BM was yesterday evening and was normal. Every time she tried to eat and drink she was having increased upper abd pain, nausea and vomiting. She denies urinary symptoms, fevers/chills, melena, BRBPR, SOB or increased cough. She reports a chronic cough since her lung cancer but there is no recent change in this cough. Pt is quite anxious at the time of the exam. She had a CT abd/pelvis at admission which revealed dilated loops of small bowel in the mid abdomen, somewhat concerning for early closed-loop obstruction, the appearance is similar to previous. Pt had an NGT placed in the ER but not much outpt per nursing staff. Pt has been evaluated by General Surgery [facility] CBC/BMP: 08/12/16 0433 08/12/16 0433 Significant Findings Laboratory Tests Test 08/11/16 08/12/16 04:02 04:33 Red Blood Count 3.88 MIL/MM3 3.73 MIL/MM3 (4.00-5.30) (4.00-5.30) Platelet Count 146 TH/MM3 (150-450) Neutrophils (%) (Auto) 85.1 % 71.0 % (16.0-70.0) (16.0-70.0) Lymphocytes (%) (Auto) 8.8 % (9.0-44.0) Lymphocytes # (Auto) 0.6 TH/MM3 0.9 TH/MM3 (1.0-4.8) (1.0-4.8) Potassium Level 3.4 MEQ/L 3.1 MEQ/L (3.5-5.1) (3.5-5.1) Blood Urea Nitrogen 5 MG/DL (7-18) 4 MG/DL (7-18) Calcium Level 8.0 MG/DL 7.9 MG/DL (8.5-10.1) (8.5-10.1) Magnesium Level 1.4 MG/DL (1.5-2.5) Hematocrit 34.1 % (35.0-46.0) Monocytes (%) (Auto) 8.7 % (0.0-8.0) Creatinine 0.41 MG/DL (0.50-1.00) Imaging Last Impressions Abdomen X-Ray 08/11/16 0800 Signed Impressions: Service Date/Time: July 09:58 - CONCLUSION: Nonspecific bowel gas pattern again noted. This is not significantly changed from the small bowel series. Jersey Clement MD Abdomen/Pelvis CT 08/10/16 0517 Signed Impressions: Service Date/Time: Wednesday, August 10, 2016 06:33 - CONCLUSION: Dilated loops of small bowel in the mid abdomen. Though it least somewhat concerning for early closed-loop obstruction, the appearance is similar to previous Vaibhav Blood MD PE at Discharge General: NAD, AAOx3 Chest: CTA bilaterally Cardiac: Regular Abd: +BS, soft ND mild diffuse tenderness Ext: No edema Hospital Course (1) Small bowel obstruction Status: Acute Plan: - Pt admitted with a three day history of abdominal pain, nausea/vomiting - Pt with a hx of SBO after previous laparoscopic cholecystectomy converted to open cholecystectomy with CBD resection and hepaticojejunostomy in 11/2015 - CT Abd/pelvis (08/10) --> Dilated loops of small bowel in the mid abdomen. Though it least somewhat concerning for early closed-loop obstruction, the appearance is similar to previous - General Surgery was consulted - Pt underwent diagnostic laparoscopy with MAYNOR on 08/10/[address] Vicente. - pt cleared for discharge by General Surgery, Dr. Camp - discharge to home today, 08/13/16 - f/u with Dr. Kearney in 2 weeks - see discharge orders. (2) Abdominal pain Status: Acute Plan: - See above. (3) HTN (hypertension) Status: Chronic Plan: - BP stable currently - Vasotec PRN - Monitor (4) History of lung cancer Status: Chronic Plan: - Pt with hx of stage IIIb small cell lung cancer in remission, treated with chemo and radiation, 2005 - Pts Oncologist [place] (Dr. Connell at [place]) Pt Condition on Discharge: Stable Discharge Disposition: Discharge Home Discharge Instructions DIET: Follow Instructions for: Heart Healthy Diet Activities you can perform: Regular-No Restrictions Follow up Referrals: Surgical - 1 Week with Ac Kan MD New Medications: Hydrocodone-Acetaminophen (Hydrocodone-Acetaminophen) 5-325 mg Tab 1 TAB PO Q4H PRN PAIN SCALE 1 TO 5 #12 TAB Continued Medications: Gabapentin (Gabapentin) 300 Mg Cap 300 MG PO TID #90 Ref 11 CAP Omeprazole (Omeprazole) 40 Mg Cap 40 MG PO DAILY #30 Ref 11 CAP Discontinued Medications: Amlodipine (Amlodipine) 5 Mg Tab 5 MG PO DAILY Blood Pressure Management #30 Ref [address] (Diclofenac S[address]) 75 Mg Tabdr 75 MG PO BID #28 Ref 0 TAB Lisinopril (Lisinopril) 20 Mg Tab 20 MG PO DAILY #30 Ref 11 TAB Lokesh Michel DO Aug 13, 2016 17:09
--- NOTE | 2016-08-13 17:10 | HHI.DCPOC ---
Discharge Care Plan Diagnosis: (1) Small bowel obstruction Goals to Promote Your Health * To prevent worsening of your condition and complications * To maintain your health at the optimal level Directions to Meet Your Goals Take your medications as prescribed Follow your dietary instruction Follow activity as directed Keep your appointments as scheduled Take your immunizations and boosters as scheduled If your symptoms worsen call your PCP, if no PCP go to Urgent Care Center or Emergency Room Smoking is Dangerous to Your Health. Avoid second hand smoke Call the 24-hour hour crisis hotline for domestic abuse at Lokesh Michel DO Aug 13, 2016 17:10
--- NOTE | 2016-09-03 18:01 | MB ---
cc: GABI ARGUETA DATE OF CONSULTATION: 08/10/2016. REASON FOR CONSULTATION: Surgical consultation. HISTORY OF PRESENT ILLNESS: This is a 66-year-old female who was admitted to the hospital with findings of bowel obstruction. Surgical consult was requested. The patient has a history of an open cholecystectomy with hepaticojejunostomy for common bile duct injury at the time of her gallbladder. She was doing well until approximately three days prior to presentation when she began experiencing nausea and vomiting and inability to tolerate liquids or solids. The patient has not passed gas for approximately a day. Her last bowel movement was the day prior to presentation. She has abdominal pain. PAST MEDICAL HISTORY: Her past medical history is significant for the above as well as: 1. Hypertension. PAST SURGICAL HISTORY: Her past surgical history is significant for: 1. Hysterectomy. MEDICATIONS AT HOME: 1. Lisinopril. 2. Gabapentin. 3. Amlodipine. 4. Omeprazole. ALLERGIES: SHE HAS NO KNOWN DRUG ALLERGIES. SOCIAL HISTORY: She quit smoking approximately seven years ago and drinks alcohol occasionally. FAMILY HISTORY: Noncontributory. REVIEW OF SYSTEMS: Significant for the above, All other ten-point review negative. PHYSICAL EXAMINATION: GENERAL: On exam, she is laying in bed in no acute distress. HEAD, EYES, EARS, NOSE, THROAT: Her pupils are equal and reactive. NECK: Trachea is midline. LUNGS: Respirations are clear. CARDIOVASCULAR: Regular. GASTROINTESTINAL: Soft. Positive tenderness in the upper abdomen. MUSCULOSKELETAL: No deformities. NEUROLOGIC: Nonfocal. LABS: The patient's white blood cell count is 7.9, neutrophils of 73.8. ASSESSMENT: This is a patient with history of hepaticojejunostomy and findings of bowel obstruction. PLAN: We will take the patient to the operating room for a laparoscopy. The risks and benefits were explained to include but not be exclusive to infection, bleeding, bowel injury, solid organ injury, technical aspects explained as well as lexx and postoperative course. The patient verbalized understanding and consent was obtained. Will proceed to the operating room. MD JOAQUINA Boswell/LALA /3:26 PM /5:47 PM
--- NOTE | 2016-09-05 08:23 | MP ---
cc: GABI KAN DATE OF 1950 DATE OF OPERATION 08/10/2016 PREOPERATIVE DIAGNOSIS Small bowel obstruction. POSTOPERATIVE DIAGNOSIS Partial bowel obstruction. PROCEDURE Laparoscopy with lysis of adhesions. SURGEON Gabi Kan MD ANESTHESIA General endotracheal anesthesia. ESTIMATED BLOOD LOSS Scant. FINDINGS 1. Adhesions of small bowel to the abdominal wall. 2. Chronic dilation of the patient's Valeriano limb. 3. No evidence of internal hernia. COMPLICATIONS None. OPERATION The patient was brought to the operating room, placed on the operating room table in supine position, bilateral sequential inflation device placed on lower the extremities, general anesthesia instituted, Gutierrez catheter placed antibiotics initiated. The abdomen was prepped and draped sterilely. A point in the left upper quadrant anesthetized with 0.25% Marcaine with epinephrine. A skin incision was made, 5-mm OptiView port placed under direct vision and pneumoperitoneum created. Under direct vision, a 5-mm left lower quadrant and a 5-mm right upper quadrant port was placed. Prior to placement of all ports, the skin and peritoneum were anesthetized with 0.25% Marcaine with epinephrine. The abdominal cavity was inspected, findings as above. The patient's stomach was mildly dilated. She has chronically dilated small bowel, leading to her hepaticojejunostomy. No obstructive point at the jejunojejunostomy. The patient had dilated bowel to her abdominal wall. This was taken down sharply. There were interloop adhesions which were sharply . The bowel was inspected around the dilated loops. Distally there was no sign of adhesive band leading to obstruction. It was felt that the bowel adhesed to the abdominal wall was leading to her problem. At this point the operation was terminated. CO2 was released, all ports removed, all skin incisions closed with 4-0 Monocryl. The abdominal wall was cleaned and a sterile dressing placed. The patient was awakened and taken to the recovery room. MD JOAQUINA Boswell/CELE /3:22 PM /8:17 AM
[2016-09-05] MEDS ORDERED: IBUP800T23 PO (15:55)
[2016-10-27] MEDS ORDERED: CHERSYP2 PO (09:11)
[2016-10-27] MEDS ORDERED: ZITHTAB PO (09:11)
[2016-11-03] MEDS ORDERED: MACR100C2 PO (10:34)
[2017-01-10] MEDS ORDERED: MUPI2%T TOPICAL (15:29)
== END 2016-08-13 19:30 | disposition home or self-care (01) | DRG 337 ==
LOC: NEPC 05:02 → NEDA 07:27 → N07B 11:42
PROVIDERS: ADMIT Hospitalist; ATTEND Hospitalist
PROC: 0DN84ZZ Release Small Intestine, Percutaneous Endoscopic Approach (ICD-10-PCS; 2016-08-10)
PROC: 0D9670Z Drainage of Stomach with Drainage Device, Via Natural or Artificial Opening (ICD-10-PCS; principal; 2016-08-10 19:57)
DX: K56.5 Intestinal adhesions [bands] with obstruction (postinfection) (principal); G62.9 Polyneuropathy, unspecified; I10 Essential (primary) hypertension; Z85.118 Personal history of other malignant neoplasm of bronchus and lung; K21.9 Gastro-esophageal reflux disease without esophagitis; Z85.41 Personal history of malignant neoplasm of cervix uteri; Z92.3 Personal history of irradiation; M54.2 Cervicalgia; G89.29 Other chronic pain; Z87.891 Personal history of nicotine dependence; Z90.49 Acquired absence of other specified parts of digestive tract; Z92.21 Personal history of antineoplastic chemotherapy; F41.9 Anxiety disorder, unspecified
CPT/HCPCS: 74000; 74177; 80048; 80053; 81001; 83605; 83690; 83735; 85025; 87077; 87086; 87186; 93005; 96361; 96374; 96375; 96376; J0690; J1170; J1650; J2060; J2270; J2370; J2405; J2710; J3010; J3475; J3480; J7030; J7611; Q9967

== ENCOUNTER → 2017-04-27 | Day surgery (SDC) | payer OTHER ==
[~2017-04-27] VITALS: Ht 156.2 cm; Wt 51.1 kg
[~2017-04-27] MED LIST changes: +*MEPERIDINE 25 MG INJ VIAL PERIprocedural Use ONLY ONE; +ACETAMINOPHEN/HYDROcodone 325 MG/5 MG TAB ONE; +AMLO10TA2 PO; -AMLO5TAB2 PO; +BUPIVACAINE HCL PF 0.5% 30 ML VIAL ONE; +CHERSYP2 PO; +CHLORHEXIDINE GLUCONATE 2 % 1 PACK (2 CLOTHS) TOPICAL PRN; -CYCL1TAB29 PO; -DICL75TA PO; +FAMOTIDINE 20 MG/2 ML VIAL ONE; +IBUP800T23 PO; +INSULIN HUMAN REGULAR 1,000 UNITS/10 ML VIAL SQ PRN; +LACTATED RINGER'S 1000 ML INJ 1,000 ML IV ONE; +LACTATED RINGER'S 1000 ML IV PRN; +LIDOCAINE HCL 2% 50 ML VIAL ONE; +METOPROLOL TARTRATE 25 MG TAB PO PRN; +MIDAZOLAM HCL 2 MG/2 ML VIAL ONE; +MORPHINE SULFATE 4 MG/ML INJ ONE; +MUPI2%T TOPICAL; +NEOMYCIN/POLYMYXIN 1 ML G.U. IRRIGANT ONE; +NORC5TAB PO; +POVIDONE IODINE 5% (ANTISEPSIS KIT) 4 APPLICATIONS EACH NARE PRN; +PROPOFOL 200 MG/20 ML AMP IV ONE; +SODIUM CHLORID 0.9% 500 ML IV PRN; +SODIUM CHLORIDE 0.9% INJ 50 ML ONE; +ceFAZolin 1,000 MG/NS 100 ML IV SCH
[2017-04-27 12:03] LABS: MEAN CELL VOLUME 91.3 FL (80.0-100.0); MEAN CORPUSCULAR HEMOGLOBIN 31.1 PG (27.0-34.0); MEAN CORPUSCULAR HGB CONC 34.1 % (32.0-36.0); PLATELET COUNT 277 TH/MM3 (150-450); RED BLOOD COUNT 3.95 MIL/MM3 (4.00-5.30); RED CELL DISTRIBUTION WIDTH 13.1 % (11.6-17.2); REVIEW FLAG FINAL; WHITE BLOOD COUNT 8.5 TH/MM3 (4.0-11.0)
[2017-04-27 13:40] VITALS: PULSE 76
[2017-04-27 14:30] VITALS: TEMP 97.9
[2017-04-27 15:15] VITALS: BP 117/70; PULSE 83; RESP 16; O2SAT 97
--- NOTE | 2017-04-27 22:42 | MP ---
cc: CORY BUI MD DATE OF SURGERY 04/27/17 PREOPERATIVE DIAGNOSIS Left fifth proximal phalanx fracture. PROCEDURE 1. Left fifth proximal phalangeal fracture closed reduction with manipulation and percutaneous pinning. 2. Use of image intensifier SURGEON Mariya Bui III, MD PROCEDURE IN DETAIL The patient was brought to the operating placed on the operating table after the correct site and side of surgery were verified by members of each team in the room multiple times, the patient myself, after adequate preop markings and preoperative written consent was verified by everyone, after adequate preop time-out was performed to everyone's satisfaction, after adequate general anesthesia had been achieved, the left upper extremity was prepped, draped in traditional sterile surgical fashion. A 50/50 mixture of 2% plain lidocaine 0.5% plain Marcaine was infiltrated into the skin and subcutaneous tissue proximal to the fifth finger to create a digital block. The closed reduction with repair of manipulation was then done using the mini C-arm as a guide. Once anatomic reduction had been achieved, two separate 0.035 cm K-wires were advanced in an antegrade fashion securing the proximal phalangeal reduction. There was no bleeding. Capillary refill was still less than 2 seconds. Final x-rays were obtained. There was no mal angulation or malrotation of the fifth finger and it was able to be closed into a full fist. Pins were tailored to length, cut, bent, Jergen's balls were applied. The hand and arm were thoroughly cleansed and dried. Betadine and Xeroform was applied around the pin sites followed by a very bulky well-padded, well molded short-arm ulnar gutter splint. The patient was awaken from anesthesia and transported to Post Anesthesia Care awake in stable condition at the end of the case. The sponge, needle and instrument counts were correct at the end of the case as reported by nurses in the room. MD ROBBY Barajas III/ /1:42 PM /10:27 PM
--- NOTE | 2017-04-28 13:13 | EKG ---
Date Performed: 04/27/2017 Time Performed: 11:40:04 PTAGE: 67 years EKG: Sinus rhythm RIGHT BUNDLE BRANCH BLOCK ABNORMAL ECG PREVIOUS TRACING : 08/10/2016 05.29 Compared to prior tracing no significant change DOCTOR: Nabor Thrasher Interpretating Date/Time 04/28/2017 13:10:48
== END | disposition home or self-care (01) ==
LOC: PHSDC 10:59
PROVIDERS: ATTEND Orthopaedic Surgery Hand Surgery
DX: S62.617A Displaced fracture of proximal phalanx of left little finger, initial encounter for closed fracture (principal); I10 Essential (primary) hypertension; K21.9 Gastro-esophageal reflux disease without esophagitis; Z85.118 Personal history of other malignant neoplasm of bronchus and lung; Z01.818 Encounter for other preprocedural examination; Z01.810 Encounter for preprocedural cardiovascular examination
CPT/HCPCS: 01820; 26727; 36415; 76000; 85027; 93005; J0690; J2175; J2250; J2270; J7120

== ENCOUNTER 2017-07-24 00:45 | Emergency (ER) | payer OTHER ==
[~2017-07-24 00:45] MED LIST changes: -*MEPERIDINE 25 MG INJ VIAL PERIprocedural Use ONLY ONE; -ACETAMINOPHEN/HYDROcodone 325 MG/5 MG TAB ONE; -AMLO10TA2 PO; -BUPIVACAINE HCL PF 0.5% 30 ML VIAL ONE; -CHLORHEXIDINE GLUCONATE 2 % 1 PACK (2 CLOTHS) TOPICAL PRN; -FAMOTIDINE 20 MG/2 ML VIAL ONE; +IBUP1TAB7 PO; -IBUP800T23 PO; -INSULIN HUMAN REGULAR 1,000 UNITS/10 ML VIAL SQ PRN; -LACTATED RINGER'S 1000 ML INJ 1,000 ML IV ONE; -LACTATED RINGER'S 1000 ML IV PRN; -LIDOCAINE HCL 2% 50 ML VIAL ONE; -METOPROLOL TARTRATE 25 MG TAB PO PRN; -MIDAZOLAM HCL 2 MG/2 ML VIAL ONE; -MORPHINE SULFATE 4 MG/ML INJ ONE; -MUPI2%T TOPICAL; -NEOMYCIN/POLYMYXIN 1 ML G.U. IRRIGANT ONE; -NORC5TAB PO; -POVIDONE IODINE 5% (ANTISEPSIS KIT) 4 APPLICATIONS EACH NARE PRN; -PROPOFOL 200 MG/20 ML AMP IV ONE; -SODIUM CHLORID 0.9% 500 ML IV PRN; -SODIUM CHLORIDE 0.9% INJ 50 ML ONE; -ceFAZolin 1,000 MG/NS 100 ML IV SCH
[2017-07-24 00:48] VITALS: BP 131/64; PULSE 98; RESP 16; TEMP 98.3; O2SAT 96
[2017-07-24] MEDS ORDERED: NAPR500T2 PO (00:55)
--- NOTE | 2017-07-24 01:43 | RADRPT ---
EXAM DATE/TIME: 07/24/2017 01:30 [facility] COMPARISON: No previous studies available for comparison. INDICATIONS : Left wrist pain from a fall. MEDICAL HISTORY : Carcinoma, lung. Cervical Ca SURGICAL HISTORY : Cholecystectomy. Hysterectomy. ENCOUNTER: Initial ACUITY: 1 day PAIN SCORE: 10/10 LOCATION: Left wrist FINDINGS: 3 views of the left wrist reveal an acute impaction stopped fracture involving the distal radial meta physis as well as the distal ulnar metaphysis and ulnar styloid. The fracture is are perpendicular to the long axis of the bones. No angulation or overlap. No discrete intra-articular extension except f or extension to the radial ulnar articulation. Underlying osteopenia. Ost arthritis involving the bas e of the bone. CONCLUSION: Acute distal radial and ulnar fractures as detailed above. Dalton Bryson Jr., MD on July 24, 2017 at 1:41 Board Certified Radiologist. This report was verified electronically.
[2017-07-24] MEDS ORDERED: NORC5TAB PO (01:53)
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
[2017-08-01] MEDS ORDERED: NORC5TAB PO (10:07)
[2017-08-11] MEDS ORDERED: OXYC30TA62 PO (16:57)
[2017-08-11] MEDS ORDERED: OXYC-392 PO (16:57)
[2017-08-11] MEDS ORDERED: OS-CTAB3 PO (17:00)
[2017-08-11] MEDS ORDERED: CEPH-460 PO (17:00)
[2017-08-11] MEDS ORDERED: MULTTAB67 PO (17:00)
[2017-08-11] MEDS ORDERED: VITA500T83 PO (17:00)
== END 2017-07-24 06:10 | disposition home or self-care (01) ==
LOC: NEPD 00:45
DX: S62.102A Fracture of unspecified carpal bone, left wrist, initial encounter for closed fracture (principal); I10 Essential (primary) hypertension; K21.9 Gastro-esophageal reflux disease without esophagitis; Z85.41 Personal history of malignant neoplasm of cervix uteri; Z85.118 Personal history of other malignant neoplasm of bronchus and lung; Z90.710 Acquired absence of both cervix and uterus; Z90.49 Acquired absence of other specified parts of digestive tract; W01.0XXA Fall on same level from slipping, tripping and stumbling without subsequent striking against object, initial encounter; Y92.414 Local residential or business street as the place of occurrence of the external cause
CPT/HCPCS: 29125; 73110

== ENCOUNTER → 2017-08-10 | Day surgery (SDC) | payer OTHER ==
[~2017-08-10] VITALS: Ht 154.9 cm; Wt 50.0 kg
[~2017-08-10] MED LIST changes: +CEPH-460 PO; +CHLORHEXIDINE GLUCONATE 2 % 1 PACK (2 CLOTHS) TOPICAL PRN; +LACTATED RINGER'S 1000 ML IV PRN; +MEPERIDINE HCL 50 MG/ML VIAL IM PRN; +METOPROLOL TARTRATE 25 MG TAB PO PRN; +MULTTAB67 PO; +NAPR500T2 PO; +NORC5TAB PO; +OS-CTAB3 PO; +OXYC-392 PO; +OXYC30TA62 PO; +POVIDONE IODINE 5% (ANTISEPSIS KIT) 4 APPLICATIONS EACH NARE PRN; +SODIUM CHLORID 0.9% 500 ML IV PRN; +VITA500T83 PO; +ceFAZolin 1,000 MG/NS 100 ML IV SCH; +oxyCODONE HCL 10 MG CONTROLLED RELEASE TAB PO ONE; +oxyCODONE/ACETAMINOPHEN 5 MG/325 MG TAB PO PRN
[2017-08-10 08:50] VITALS: BP 163/85; PULSE 83; RESP 16; TEMP 97.9; O2SAT 100
== END | disposition home or self-care (01) ==
LOC: PHSDC 07:42
PROVIDERS: ATTEND Orthopaedic Surgery Hand Surgery
DX: S52.502A Unspecified fracture of the lower end of left radius, initial encounter for closed fracture (principal); Z53.8 Procedure and treatment not carried out for other reasons
CPT/HCPCS: 99211; G0463

== ENCOUNTER → 2017-08-11 | Day surgery (SDC) | payer OTHER ==
[~2017-08-11] VITALS: Ht 154.9 cm; Wt 50.5 kg
[~2017-08-11] MED LIST changes: +BUPIVACAINE HCL PF 0.5% 30 ML VIAL ONE; +DEXAMETHASONE SOD PHOS 4 MG/ML VIAL IV ONE; +FAMOTIDINE 20 MG/2 ML VIAL ONE; +HYDROmorphone HCL PF 1 MG/ML VIAL ONE; +LIDOCAINE HCL 1% PF 5 ML SYRINGE OTHER ONE; +LIDOCAINE HCL 2% 50 ML VIAL ONE; +MIDAZOLAM HCL 2 MG/2 ML VIAL ONE; +MORPHINE SULFATE 4 MG/ML INJ ONE; +NEOMYCIN/POLYMYXIN 1 ML G.U. IRRIGANT ONE; +ONDANSETRON HCL 4 MG/2 ML VIAL IV PUSH ONE; +PHENYLEPH/NS 1000 MCG/10 ML SYR IV ONE; +PROPOFOL 200 MG/20 ML AMP IV ONE; +SUCCINYLCHOLINE CHLORIDE 100 MG/5 ML SYRINGE IV PUSH ONE; +TRIAMCINOLONE ACETONIDE 40 MG/ML VIAL ONE; +fentaNYL CITRATE 250 MCG/5 ML AMP ONE
[2017-08-11 12:44] LABS: HEMATOCRIT 38.8 % (35.0-46.0); HEMOGLOBIN 12.7 GM/DL (11.6-15.3); MEAN CELL VOLUME 90.5 FL (80.0-100.0); MEAN CORPUSCULAR HEMOGLOBIN 29.6 PG (27.0-34.0); MEAN CORPUSCULAR HGB CONC 32.7 % (32.0-36.0); MEAN PLATELET VOLUME 7.8 FL (7.0-11.0); PLATELET COUNT 336 TH/MM3 (150-450); RED BLOOD COUNT 4.28 MIL/MM3 (4.00-5.30); RED CELL DISTRIBUTION WIDTH 13.6 % (11.6-17.2); WHITE BLOOD COUNT 6.6 TH/MM3 (4.0-11.0)
[2017-08-11 16:45] VITALS: PULSE 90
[2017-08-11 17:30] VITALS: TEMP 98.2
[2017-08-11 17:45] VITALS: PULSE 82
[2017-08-11 18:50] VITALS: BP 124/72; PULSE 84; RESP 16; O2SAT 97
--- NOTE | 2017-08-12 22:30 | MP ---
cc: CORY BUI MD DATE OF SURGERY 08/11/17 PREOPERATIVE DIAGNOSIS 1. Left distal radius fracture intra-articular 2. Left distal ulnar fracture. PROCEDURE 1. Open reduction internal fixation left distal radius multiple fragments intra-articular with dorsal bridge plating and bone graft. 2. Open reduction internal fixation left distal ulna. 3. Use of image intensifier SURGEON Mariya Bui MD PROCEDURE IN DETAIL The patient was brought to the operative room, placed supine on the operating table. After the correct site and side of surgery were verified by members of each team in the room multiple times including the patient and myself, after adequate preop markings and preoperative consent was verified by everyone, after adequate time was per to everyone's satisfaction, after adequate general anesthesia had been achieved, the left upper extremity was prepped and draped in traditional sterile surgical fashion. A 50/50 mixture of 2% plain lidocaine, 0.5% plain Marcaine was infiltrated into the skin and subcutaneous tissue in the area of planned incisions. No tourniquet was used at that time. A longitudinal incision was made over the distal ulna, carried down through skin, subcutaneous tissue and dorsal sensory branch of ulnar nerve was identified and protected the entire time. The aponeurotic layer overlying the distal ulna was opened down to the periosteum. The ulnar most 1-1/2 cm was exposed with the fracture that was distracted. Thorough irrigation was performed. It was reduced using mini C-arm guidance in real-time. Provisional fixation was obtained with a K-wire and then using a Synthes modular handset a Y-shaped plate from the 2 mm tray was used and tailored to fit bone graft. This was inserted distal ulna and the shaft and three screws were placed proximally to distally. Reduction was anatomic. It was verified on C-arm fluoroscopy. Thorough irrigation was performed again with saline. The aponeurotic layer was closed using running 3-0 Ethibond suture. Thorough irrigation was performed again. The dorsal sensory branch of the ulnar nerve was again examined. The deep subcutaneous tissues were closed using interrupted 3-0 Vicryl sutures and the skin edges reapproximated using running 4-0 nylon suture. Incision was made on the dorsal aspect of the hand, wrist and radial shaft successfully. The distal-most over the third metacarpal and carried down through skin and subcutaneous tissue. Please note bipolar electrocautery was used as needed and as indicated throughout the entire case. Dissection was performed down to the third metacarpal and periosteum was cleared. Another incision was made overlying Le's tubercle 3 cm in length longitudinally carried down through skin and subcutaneous tissue. The third dorsal compartment was opened and the extensor pollicis longus tendon was freed. The fourth dorsal compartment was then retracted ulnarly. A third incision was made over the radial shaft in usual fashion and small area of the periosteum dorsally was also cleared. The radial fracture was then distracted. Thorough irrigation was performed. Le's tubercle was removed. Dorsal bridge plate was then placed in a retrograde fashion deep to all structures and then three screws placed without rotation in the third metacarpal. Bone graft was then applied and the volar tilt and radial inclination were restored using the mini C-arm for a guide. Once this was done and adequate length was achieved, three proximal screws were then placed. Passive range of motion examination of the wrist revealed no crepitance at the distal radioulnar joint at all. An additional screw into the metaphysis of the distal radius was placed to provide some additional support while healing but this was not a [id number]. Thorough irrigation was performed multiple times with multiple liters of saline. The tissues were then closed closing deep tissues over the hardware when able. The subcutaneous tissues were reapproximated using deep 3-0 Vicryl sutures. The skin edges reapproximated using running 4-0 nylon suture. The hand and arm were thoroughly cleansed and dried. Additional local anesthetic was injected for a radial nerve block dorsally and proximally. This was done using a 50/50 mixture of 2% plain lidocaine 0.5% plain Marcaine. The hand and proximal arm all remained soft. The hand and arm were thoroughly cleansed and dried. Betadine Adaptic dressings were applied on top of the wound followed by a very bulky well-padded, well molded non-constricting long-arm sugar-tong splint leaving the thumb and all the fingers free. Capillary refill less than 2 seconds at all times. The patient was awakened from anesthesia and transported to the Post Anesthesia Care Unit awake in stable condition at the end of the case. IDENTIFICATION MD NÉSTOR Barajas III /5:16 PM /10:11 PM
== END | disposition home or self-care (01) ==
LOC: PHSDC 11:56
PROVIDERS: ATTEND Orthopaedic Surgery Hand Surgery
DX: S52.572A Other intraarticular fracture of lower end of left radius, initial encounter for closed fracture (principal); S52.602A Unspecified fracture of lower end of left ulna, initial encounter for closed fracture
CPT/HCPCS: 01830; 25609; 25652; 36415; 76000; 85027; C1713; J0690; J1170; J2250; J2270; J3010; J7120; J0330; J1100; J2370; J2405; J3301

== ENCOUNTER → 2017-08-15 | Day surgery (SDC) | payer OTHER ==
[~2017-08-15] VITALS: Ht 154.9 cm; Wt 54.5 kg
[~2017-08-15] MED LIST changes: +*RESP: ALBUTEROL 2.5 MG/3 ML NEB (PRN) PERIprocedural Use ONLY NEB ONE; +ACETAMINOPHEN 1000 MG/100 ML 100 ML IV ONE; -BUPIVACAINE HCL PF 0.5% 30 ML VIAL ONE; +DO NOT ADM ANY ANTICOAGULANT DRUGS PRN; -FAMOTIDINE 20 MG/2 ML VIAL ONE; -HYDROmorphone HCL PF 1 MG/ML VIAL ONE; +HYDROmorphone HCL PF 2 MG/ML VIAL ONE; +INSULIN HUMAN REGULAR 1,000 UNITS/10 ML VIAL SQ PRN; +KETOROLAC TROMETHAMINE 30 MG/ML (IVP) VIAL IV PUSH ONE; +KETOROLAC TROMETHAMINE 30 MG/ML (IVP) VIAL IV PUSH PRN; +LIDOCAINE 0.5%/EPINEPHrine 1:200,000 SOLN 50 ML VIAL ONE; -LIDOCAINE HCL 2% 50 ML VIAL ONE; -MEPERIDINE HCL 50 MG/ML VIAL IM PRN; -MIDAZOLAM HCL 2 MG/2 ML VIAL ONE; -NEOMYCIN/POLYMYXIN 1 ML G.U. IRRIGANT ONE; +ONDANSETRON HCL 4 MG/2 ML VIAL IV ONE; -ONDANSETRON HCL 4 MG/2 ML VIAL IV PUSH ONE; -SUCCINYLCHOLINE CHLORIDE 100 MG/5 ML SYRINGE IV PUSH ONE; -TRIAMCINOLONE ACETONIDE 40 MG/ML VIAL ONE; -ceFAZolin 1,000 MG/NS 100 ML IV SCH; +ceFAZolin INJ 1,000 MG VIAL IV ONE; -fentaNYL CITRATE 250 MCG/5 ML AMP ONE; -oxyCODONE HCL 10 MG CONTROLLED RELEASE TAB PO ONE
[2017-08-15 17:15] VITALS: BP 106/75; PULSE 97; RESP 16; TEMP 98.4; O2SAT 100
--- NOTE | 2017-08-16 07:35 | MP ---
cc: KENDY DUTTON MD, KELLY L. MD DATE OF SURGERY 08/15/2017 PREOPERATIVE DIAGNOSIS Vaginal dysplasia. POSTOPERATIVE DIAGNOSIS Vaginal dysplasia. PROCEDURE Exam under anesthesia, colposcopy, wide local excision of vaginal mucosa x 2 HISTORY A 67-year-old female who previously had a hysterectomy a number of years ago, had an abnormal Pap smear which lead to colposcopy and multifocal biopsies by Dr. Kendy Medrano. 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 Biopsy of the posterior mid-vagina showed moderate dysplasia. She has been counseled regarding options. Recommended for Aldara medical treatment. However, due to a broken arm and then another fall with another broken arm, she did not feel she was able to apply it properly, so that the Aldara never got started. She was seen in the [facility] oncology office in consultation where the potential value of Aldara was also reiterated that she favored excision of the high-grade area or any other areas that appear high-grade and understands that when she recovers from her orthopedic injuries there may be benefit to medical management as well. She is seen in the preop holding area where the findings and plan of care are again reviewed. Questions were answered. She expresses good understanding and would like to move forward with surgery. FINDINGS On exam under anesthesia there are no appreciably enlarged inguinal lymph nodes. External genitalia without mass or lesion. The uterus and cervix are surgically absent. There is no immediately grossly visible or palpable abnormality. Dilute acetic acid is applied to all surfaces of the vaginal mucosa and after several minutes colposcopy is performed. Colposcopy shows a well-demarcated raised acetowhite epithelial area that is suggestive of high-grade dysplasia in the posterior mid-vagina. There is also a well-demarcated area in the right mid-upper vagina that appears possibly high-grade and then there are subtle diffuse acetowhite changes that extend over a fairly large area near the previous vaginal cuff from the mid-lateral, extending to pass a the corner of the cuff and extending down into the proximal the upper and lower vaginal mucosa. No vascular changes and overall appears to be low grade or condylomatous type changes. The two areas that were most well demarcated and appeared to be high-grade dysplasia (including the biopsy proven high-grade dysplasia from the posterior vagina) were felt to be best addressed by surgical means today but it was felt that the area of low grade changes covered too much mucosa for surgical excision and given that it appears to be low-grade, it is felt that morbidity associated with surgical resection would exceed benefit. PROCEDURE She is taken to the operating room, placed in dorsal lithotomy position. After laryngeal mask anesthesia was administered, time-out was undertaken. She was identified by sight recognition and hospital ID [email or web address] and the proposed procedure was reviewed and confirmed. Exam under anesthesia was performed with the findings as described above. Dilute acetic acid was applied to all surfaces of the vagina and a colposcopy was performed with the findings as described above. She was prepped and draped sterile fashion. A surgical marker was used to outline an elliptical excision approximately 2 cm in diameter area to excise the posterior dysplastic area. Lidocaine epinephrine was injected in the submucosa. Sharp dissection was used using a scalpel blade, an elliptical excision and then sharp dissection to remove the mucosa and a small margin of submucosa and the specimen was removed and labeled as posterior vagina and the defect was closed with interrupted 3-0 Vicryl sutures which reapproximated the mucosal edges with complete removal of the abnormal-appearing area. Good hemostasis and good reapproximation of the tissue without tension. Similarly the area on the anterior right mid-vagina was isolated with a surgical marker. Lidocaine was injected. Again it was an area of approximately 2 cm diameter. Sharp dissection was used to incise around the mucosa and then dissect the mucosa with a narrow margin of submucosa and this was removed as anterior vagina. The defect was closed with interrupted 3-0 Vicryl sutures which reapproximated the mucosa and submucosa. Complete hemostasis, complete removal of the abnormal area. Both areas were removed with a margin of normal-appearing occurs mucosa circumferentially. It is noted that the posterior edge of the resection from the antral mucosa was in contact with the diffuse low-grade appearing dysplasia such that a positive margin is not unexpected. The vagina was irrigated. There were no remaining foreign objects in the vagina. Good hemostasis. Preliminary and final counts were correct. She was returned to the dorsal supine position and was pending reversal of anesthesia when I left the operating room to precede her to the Post-Anesthesia Care Unit. MD AMI Jimenez/CELE /3:26 PM /7:13 AM PEGGY
== END | disposition home or self-care (01) ==
LOC: HSDC 11:46
PROVIDERS: ATTEND Obstetrics & Gynecology Gynecologic Oncology
DX: N89.0 Mild vaginal dysplasia (principal); I10 Essential (primary) hypertension; Z87.891 Personal history of nicotine dependence
CPT/HCPCS: 00940; 57135; 88305; 94664; J0131; J0690; J1100; J1170; J1885; J2270; J2370; J2405; J7120; J7613; 88302

== ENCOUNTER → 2017-10-04 | Day surgery (SDC) | payer OTHER ==
[~2017-10-04] VITALS: Ht 156.2 cm; Wt 52.0 kg
[~2017-10-04] MED LIST changes: -*RESP: ALBUTEROL 2.5 MG/3 ML NEB (PRN) PERIprocedural Use ONLY NEB ONE; -ACETAMINOPHEN 1000 MG/100 ML 100 ML IV ONE; +ACETAMINOPHEN/HYDROcodone 325 MG/5 MG TAB ONE; +BUPIVACAINE HCL PF 0.5% 30 ML VIAL ONE; -DEXAMETHASONE SOD PHOS 4 MG/ML VIAL IV ONE; -DO NOT ADM ANY ANTICOAGULANT DRUGS PRN; +HYDR-3288 PO; -HYDROmorphone HCL PF 2 MG/ML VIAL ONE; -INSULIN HUMAN REGULAR 1,000 UNITS/10 ML VIAL SQ PRN; -KETOROLAC TROMETHAMINE 30 MG/ML (IVP) VIAL IV PUSH ONE; -KETOROLAC TROMETHAMINE 30 MG/ML (IVP) VIAL IV PUSH PRN; -LIDOCAINE 0.5%/EPINEPHrine 1:200,000 SOLN 50 ML VIAL ONE; -LIDOCAINE HCL 1% PF 5 ML SYRINGE OTHER ONE; +LIDOCAINE HCL 2% 50 ML VIAL ONE; +MIDAZOLAM HCL 2 MG/2 ML VIAL ONE; -MORPHINE SULFATE 4 MG/ML INJ ONE; +MORPHINE SULFATE 8 MG/ML INJ ONE; +NEOMYCIN/POLYMYXIN 1 ML G.U. IRRIGANT ONE; -ONDANSETRON HCL 4 MG/2 ML VIAL IV ONE; -PHENYLEPH/NS 1000 MCG/10 ML SYR IV ONE; -PROPOFOL 200 MG/20 ML AMP IV ONE; -ceFAZolin INJ 1,000 MG VIAL IV ONE; -oxyCODONE/ACETAMINOPHEN 5 MG/325 MG TAB PO PRN
[2017-10-04 11:15] LABS: HEMATOCRIT 37.5 % (35.0-46.0); HEMOGLOBIN 12.6 GM/DL (11.6-15.3); MEAN CELL VOLUME 89.9 FL (80.0-100.0); MEAN CORPUSCULAR HEMOGLOBIN 30.3 PG (27.0-34.0); MEAN CORPUSCULAR HGB CONC 33.7 % (32.0-36.0); MEAN PLATELET VOLUME 7.9 FL (7.0-11.0); PLATELET COUNT 223 TH/MM3 (150-450); RED BLOOD COUNT 4.17 MIL/MM3 (4.00-5.30); RED CELL DISTRIBUTION WIDTH 14.7 % (11.6-17.2); WHITE BLOOD COUNT 8.1 TH/MM3 (4.0-11.0)
[2017-10-04] MEDS: ceFAZolin 1,000 MG/NS 100 ML IV SCH ×4 (11:19→13:23)
--- NOTE | 2017-10-04 12:52 | MP ---
cc: Rafael Bui MD DATE OF OPERATION: 10/04/2017 PREOPERATIVE DIAGNOSIS: Left distal radius fracture. PROCEDURE: 1. Left upper extremity removal of hardware (deep buried plate and eight screws). 2. Use of image intensifier. SURGEON: Rafael Bui III, PROCEDURE: The patient was brought to the operating room, placed supine on the operating table. After the correct site and side of surgery were verified by members of each team in the room multiple times including the patient and myself, and after adequate preoperative markings, preoperative written consent was verified by everyone, after adequate general anesthesia had been achieved, the left upper extremity was prepped and draped in traditional sterile surgical fashion. The mini C-arm was used in real time throughout the entire case. Examination was then performed. A 50/50 mixture of 2% plain lidocaine and 0.5% plain Marcaine was infiltrated into the skin and subcutaneous tissues in the area of the tendon incisions which were then utilized. Blunt dissection was performed. The hardware was then visualized, 4 screws removed proximally, one at the wrist and three distally and then the entire plate was removed. There was only minor oozing. Very through irrigation with 1 liter's worth of saline was performed. The screw holes were then filled with DBX bone putty and then bone wax used to seal them. There was no bleeding at all. Thorough irrigation was performed again. The skin edges were reapproximated using running and interrupted 4-0 nylon suture. The hand and arm were thoroughly cleansed and dried, Betadine and Adaptic dressings on top of the wounds, followed by bulky soft dressing. A volar immobilizing splint was made in the usual fashion. The patient was awakened from anesthesia and transported to the post-anesthesia care unit awake, in stable condition at the end of the case. Sponge, needle and instrument counts were correct at the end of the case as reported by the nurses in the room. The hand and all the fingers were soft, pink and warm with no evidence of any bleeding or hematoma formation. The tourniquet was never used. MD ROBBY Barajas/ALBINA , 12:37 PM , 12:50 PM
[2017-10-04 13:30] VITALS: O2SAT 94
[2017-10-04 14:00] VITALS: BP 132/80; PULSE 84; RESP 16; TEMP 98
== END | disposition home or self-care (01) ==
LOC: PHSDC 09:10
PROVIDERS: ATTEND Orthopaedic Surgery Hand Surgery
DX: Z47.2 Encounter for removal of internal fixation device (principal); Z79.899 Other long term (current) drug therapy
CPT/HCPCS: 01830; 20680; 36415; 76000; 85027; J0690; J2250; J2270; J3010; J7120